=== PATIENT | female | born 1930 | race Two or more races ===

== ENCOUNTER → 2016-11-17 | Outpatient (CLI) | payer OTHER ==
[~2016-11-17] MED LIST: ASPI-1061 PO; DOCU250C91 PO; GABA-529 PO; METF500T4 PO; SIMV40TA5 PO; WARF1 PO
== END | disposition home or self-care (01) ==
LOC: RADPV 10:23
PROVIDERS: ATTEND Hospitalist
DX: N18.2 Chronic kidney disease, stage 2 (mild) (principal); N27.1 Small kidney, bilateral
CPT/HCPCS: 76770